=== PATIENT | female | born 1940 | race Caucasian/White ===

== ENCOUNTER 2017-08-25 09:31 | Day surgery (SDC) | payer MEDICARE ==
[2017-08-24 11:58] VITALS: BMI 27.4
[2017-08-25] MEDS ORDERED: Sodium Bicarbonate 2.5 MEQ/5 ML VIAL ONE (10:18)
[2017-08-25] MEDS ORDERED: Lidocaine 1% PF 5 ML VIAL ONE (10:18)
[2017-08-25 10:31] VITALS: BP 140/71; TEMP 98.3
--- NOTE | 2017-08-25 12:06 | ULT ---
SONOGRAPHIC GUIDED RIGHT THYROID MASS FNA: HISTORY: Goiter. Right thyroid mass. FINDINGS: After explaining the procedure and answering all questions, the anterior neck was prepped and draped in the usual sterile fashion. Sterile technique, buffered local anesthesia, sonographic guidance, an d an anterior approach were used to carefully advance the tip of a 25-gauge needle into the dominant heterogeneous mass at the mid portion of the right thyroid lobe. Position was confirmed with sonogra phy. Fine needle aspirate was obtained. A total of 4 passes were made and submitted to pathology fo r evaluation. The patient tolerated the procedure well and was dismissed in good condition. IMPRESSION: Technically successful right thyroid mass fine needle aspirate. Pathology is pending. POS: SHANON
--- NOTE | 2017-08-25 12:09 | ULT ---
THYROID ULTRASOUND: CLINICAL HISTORY: Multinodular goiter. FINDINGS: There is an enlarged and heterogeneous thyroid gland with several nodules scattered throughout each t hyroid lobe. The left thyroid lobe length is approximately 4 cm, and the right thyroid lobe length i s approximately 4.4 cm, as demonstrated. Within the mid right thyroid lobe, there is a dominant nodu le with interspersed flow and peripheral hyperemia, which measures approximately 1.3 cm. The thyroid isthmus measures 4 mm in thickness. IMPRESSION: Multiple bilateral thyroid nodules. A dominant discrete nodule is located within the mid right thyro id lobe, as discussed above. The patient has been previously scheduled for subsequent thyroid FNA. Reference procedural report fo r additional details in this regard. POS: SHANON
== END 2017-08-25 11:15 | disposition home or self-care (01) ==
LOC: ULT 09:31
PROVIDERS: ATTEND Otolaryngology Plastic Surgery within the Head & Neck
PROC: 07D13ZX Extraction of Right Neck Lymphatic, Percutaneous Approach, Diagnostic (ICD-10-PCS; principal; 2017-08-25)
PROC: BG44ZZZ Ultrasonography of Thyroid Gland (ICD-10-PCS; 2017-08-25)
DX: E04.1 Nontoxic single thyroid nodule (principal); E04.9 Nontoxic goiter, unspecified; I10 Essential (primary) hypertension; E78.00 Pure hypercholesterolemia, unspecified; I34.0 Nonrheumatic mitral (valve) insufficiency; Z79.899 Other long term (current) drug therapy; Z88.1 Allergy status to other antibiotic agents; Z88.5 Allergy status to narcotic agent; Z88.0 Allergy status to penicillin; Z88.7 Allergy status to serum and vaccine; Z88.8 Allergy status to other drugs, medicaments and biological substances; Z98.1 Arthrodesis status; Z90.49 Acquired absence of other specified parts of digestive tract; Z90.710 Acquired absence of both cervix and uterus; Z98.890 Other specified postprocedural states; Z87.01 Personal history of pneumonia (recurrent); Z85.828 Personal history of other malignant neoplasm of skin
CPT/HCPCS: 10022; 76536; 76942; 88173; J2001

== ENCOUNTER 2018-10-02 11:23 | Outpatient (CLI) | payer MEDICARE ==
--- NOTE | 2018-10-02 14:01 | ULT ---
THYROID SONOGRAM: History: Thyroid nodules. Follow up. Comparison: 08-25-17 FINDINGS: On today's exam, right thyroid lobe measures to 5.0 cm and has a heterogeneous echotexture. The heter ogeneous hypoechoic mass within the posterior aspect of the midportion now measures 1.3 cm transverse diameter, unchanged in appearance from the previous exam. The oval heterogeneous 1.3 cm nodule at t he inferior pole is also stable. Isthmus is 0.5 cm. The left thyroid lobe now measures 4.9 cm in length. The oval heterogeneous lesion at the inferior pole is not 2.4 cm oblique transverse diameter on the transverse imaging, unchanged in appearance from the prior study. It measures up to 3.4 cm length, also stable. No new masses are a pparent. IMPRESSION: Stable sonographic appearance of bilateral dominant thyroid lobe nodules. POS: SHANON
== END 2018-10-02 11:24 | disposition home or self-care (01) ==
LOC: BICULT 11:23
PROVIDERS: ATTEND Otolaryngology Plastic Surgery within the Head & Neck
DX: E04.1 Nontoxic single thyroid nodule (principal); E04.2 Nontoxic multinodular goiter
CPT/HCPCS: 76536

== ENCOUNTER 2019-01-10 01:40 | Outpatient (CLI) | payer MEDICARE ==
--- NOTE | 2019-01-10 16:52 | RAD ---
Chest 2 views HISTORY: Preop. FINDINGS: Cardiac silhouette and pulmonary vasculature are unremarkable. Mediastinum is midline. No c onfluent airspace consolidation, pneumothorax, or pleural fluid. IMPRESSION: No active cardiopulmonary abnormalities are demonstrated.
--- NOTE | 2019-01-12 09:17 | EKG ---
Test Reason : Blood Pressure : / mmHG Vent. Rate : 071 BPM Atrial Rate : 071 BPM P-R Int : 144 ms QRS Dur : 082 ms QT Int : 408 ms P-R-T Axes : 071 065 061 degrees QTc Int : 443 ms Normal sinus rhythm Normal ECG When compared with ECG of 16-MAY-2016 06:47, No significant change was found Confirmed by GEOVANNA GASCA, SRadha ([id number]) on 01/12/2019 9:16:50 AM Referred By: JANET Confirmed By:DR. Blair AUSTIN MD
== END 2019-01-10 01:41 | disposition home or self-care (01) ==
LOC: LABBT 01:40
PROVIDERS: ATTEND Orthopaedic Surgery
DX: Z01.818 Encounter for other preprocedural examination (principal); Z47.2 Encounter for removal of internal fixation device; M17.11 Unilateral primary osteoarthritis, right knee
CPT/HCPCS: 71046; 87081; 93005; 93010

== ENCOUNTER 2019-01-10 16:15 | Inpatient (IN) | payer MEDICARE ==
[2019-01-10 15:41] VITALS: BMI 26.5
[2019-01-10 16:37] LABS: #Eosinphils 0.1 thou/uL (0.0-0.7); #Lymphocytes 1.1 thou/uL (1.20-3.40); #Monocytes 0.7 thou/uL (0.11-0.59); #Neutrophils 4.6 thou/uL (1.40-6.50); %Basophils 0.4 % (0.0-1.0); %Eosinophils 1.8 % (0.0-10.0); %Lymphocytes 16.9 % (21.0-51.0); Hemoglobin 13.8 g/dL (12.0-16.0); Mean Corpuscular HGB CONC 34.7 g/dL (32.0-36.0); Mean Corpuscular Hemoglobin 32.9 pg (27.0-31.0); Mean Corpuscular Volume 94.7 fL (78.0-98.0); Mean Platelet Volume 7.2 fL (7.4-10.4); Platelet Count 260 thou/uL (130-400); White Blood Cell (WBC) Count 6.5 thou/uL (4.8-10.8)
[2019-01-10 16:39] LABS: Bilirubin Small (Negative); Blood, Urine Negative (Negative); Clarity CLOUDY (Clear); Glucose, Urine (Dipstick) Negative (Negative); Leukocyte Moderate (Negative); Nitrite Positive (Negative); Protein, Urine (Dipstick) Negative (Neg-Trace); Specific Gravity, Urine 1.024 (1.002-1.036); pH, Urine 5.5 (5.0-9.0)
[2019-01-10 16:40] LABS: Bacteria/HPF 4+ HPF (None Seen); Hyaline Casts/LPF 4-6 HYALINE CAST LPF (0-3 Hyaline); Squamous Epithelial 0-3 HPF (0-3)
[2019-01-10 16:43] LABS: INR-International Normal Ratio 0.9; Prothrombin Time 12.6 SEC (12.0-14.7)
[2019-01-10 17:03] LABS: Anion Gap 13 mmol/L (10-20); BUN (Urea Nitrogen) 17 mg/dL (9.8-20.1); Calc. Creatinine Clearance 41 mL/min (70-130); Calcium 9.8 mg/dL (7.8-10.44); Carbon Dioxide 31 mmol/L (23-31); Chloride 103 mmol/L (98-107); Estimated GFR-MDRD 43; Glucose 101 mg/dL (83-110); Potassium 3.7 mmol/L (3.5-5.1); Sodium 143 mmol/L (136-145)
[2019-01-15] MEDS ORDERED: Fentanyl 100 MCG/2 ML VIAL ONE ×2 (09:51→14:13)
[2019-01-15] MEDS ORDERED: Midazolam HCl 2 mg/2 ml Vial ONE (09:51)
[2019-01-15] MEDS ORDERED: Sodium Chloride 0.9% 10 ML ONE (09:53)
[2019-01-15] MEDS ORDERED: Sodium Chloride 0.9% 100 ML ONE (10:32)
[2019-01-15] MEDS ORDERED: Tranexamic Acid 1,000 MG/10 ML VIAL ONE (10:32)
[2019-01-15] MEDS ORDERED: Clindamycin/D5W 900 mg/50 ml Premix Bag ONE (11:36)
[2019-01-15] MEDS ORDERED: Bupivacaine/Epinephrine 0.25% 30 ML VIAL ONE (11:37)
[2019-01-15] MEDS ORDERED: Promethazine HCl 25 MG/ML VIAL IM PRN ×3 (11:53→13:48)
[2019-01-15] MEDS ORDERED: Ropivacaine HCl/PF 250 ML in Premix Bag 1 BAG NERVE BLCK SCH (11:53)
[2019-01-15] MEDS ORDERED: Zolpidem Tartrate 5 MG TAB PO PRN ×2 (11:53→13:48)
[2019-01-15] MEDS ORDERED: Ondansetron PF 4 MG/2 ML Vial IVP PRN ×2 (11:53→13:48)
[2019-01-15] MEDS ORDERED: traMADol HCl 50 MG TAB PO PRN ×3 (11:53→13:48)
[2019-01-15] MEDS ORDERED: Fentanyl 100 MCG/2 ML VIAL SLOW IVP PRN ×3 (11:56→13:48)
[2019-01-15] MEDS ORDERED: Acetaminophen 500 MG TAB PO PRN (11:59)
[2019-01-15] MEDS ORDERED: Ketorolac Tromethamine 30 MG/ML VIAL IVP SCH (12:00)
[2019-01-15] MEDS ORDERED: Promethazine HCl 25 MG/ML VIAL SLOW IVP PRN (13:47)
[2019-01-15] MEDS ORDERED: Ondansetron HCl/PF 4 MG/2 ML Vial IVP SCH (13:47)
[2019-01-15] MEDS ORDERED: diphenhydrAMINE 25 MG CAP PO PRN (13:48)
--- NOTE | 2019-01-15 13:57 | RAD ---
Right knee 2 views HISTORY: Right knee replacement. FINDINGS: Metallic components are well seated without apparent hardware loosening. Intracapsular and soft tissue gas are apparent. IMPRESSION: Right knee prosthesis is in good radiographic position.
[2019-01-15] MEDS ORDERED: Ketorolac Tromethamine 30 MG/ML VIAL ONE (14:13)
[2019-01-15] MEDS: Ketorolac Tromethamine 30 MG/ML VIAL IVP SCH ×2 (15:42→21:11)
[2019-01-15] MEDS: Sodium Chloride 0.9% 1,000 ML IV SCH (15:42)
[2019-01-15] MEDS: Clindamycin/D5W 900 MG in Premix Bag 1 BAG IVPB SCH ×2 (17:53→23:13)
[2019-01-15] MEDS: Senokot S 8.6-50 MG TAB PO SCH (20:38)
[2019-01-15] MEDS: Ferrous Gluconate 324 MG TAB PO SCH (20:38)
[2019-01-15] MEDS: Aspirin 81 mg Enteric Coated Tablet PO SCH (20:38)
[2019-01-15] MEDS ORDERED: Vancomycin HCl 1 GM in Premix Bag 1 BAG IVPB SCH (23:59)
[2019-01-16] MEDS: Sodium Chloride 0.9% 1,000 ML IV SCH ×3 (00:50→20:20)
[2019-01-16] MEDS: Acetaminophen 325 MG TAB PO PRN ×3 (03:28→20:28)
[2019-01-16] MEDS: Ketorolac Tromethamine 30 MG/ML VIAL IVP SCH ×3 (05:20→21:34)
[2019-01-16 05:34] LABS: Hemoglobin 11.3 g/dL (12.0-16.0); Mean Corpuscular HGB CONC 32.9 g/dL (32.0-36.0); Mean Corpuscular Hemoglobin 31.7 pg (27.0-31.0); Mean Corpuscular Volume 96.3 fL (78.0-98.0); Mean Platelet Volume 6.9 fL (7.4-10.4); Platelet Count 197 thou/uL (130-400); RBC Distribution Width 13.1 % (11.5-14.5); Red Blood Cell (RBC) Count 3.56 mill/uL (4.20-5.40); White Blood Cell (WBC) Count 5.9 thou/uL (4.8-10.8)
[2019-01-16] MEDS ORDERED: Sulfameth/Trimethoprim DS 800-160mg TAB PO SCH (09:00)
[2019-01-16] MEDS: Senokot S 8.6-50 MG TAB PO SCH ×2 (09:18→20:18)
[2019-01-16] MEDS: Aspirin 81 mg Enteric Coated Tablet PO SCH ×2 (09:18→20:17)
[2019-01-16] MEDS: Ferrous Gluconate 324 MG TAB PO SCH ×2 (09:18→20:18)
[2019-01-16] MEDS: Multivitamin W/ Minerals 1 TAB PO SCH (09:18)
--- NOTE | 2019-01-16 09:21 | OP ---
DATE OF PROCEDURE: 01/15/2019 PREOPERATIVE DIAGNOSIS: Right knee osteoarthritis, s/p patellar realignment PROCEDURE PERFORMED: Right total knee arthroplasty. CHARTING CLERK: Daren Arauz PA-C ANESTHESIOLOGIST: Dr. Iwona Puente. ANESTHESIA: The patient received a LMA with a single-shot sciatic adductor canal catheter. ESTIMATED BLOOD LOSS: 100 mL. TOURNIQUET TIME: 66 minutes at 250 mmHg. ANTIBIOTICS: Clindamycin 900, vancomycin 1 g TXA 1 g. The patient had triathlon size 4 femur, size 4 tibia, 9 CS poly, and A29 patella. COMPLICATIONS: None. HISTORY OF PRESENT ILLNESS: Ms. Guillen is a 78-year-old female, who presented with right knee pain. Pain has been present for several years. She had undergone conservative management and failed. She decided to undergo right total knee arthroplasty. I discussed risks and benefits of right total knee arthroplasty with possible hardware removal. Discussed risks and benefits to include pain, scar, bleeding, infection, damage to vital structures, decreased range of motion and strength, nonunion, malunion, fracture above or below the stem, loss of life or limb, and blood clot. She understood these risks and benefits and elected to proceed. DESCRIPTION OF PROCEDURE: After time-out was performed designating the patient' s right lower extremity as the operative site based on site, consents, and marking. After time-out procedure note, the patient had an anterior midline incision was made. Medial patellar arthrotomy exposed the patella, excised the fat pad, did a medial soft tissue release, post distal femur cut at 0 degrees, 4 degrees of slope and 10 and 8 respectively, removed the osteophytes. We then placed our 3 degrees external rotation guide mapped out to a size 4. We placed our 4 cutting block, cut anterior, posterior, and chamfer cuts, removed osteophytes, placed our pickle fork in position, released PCL. So as the distal tibia, cut the tibia in 4 degrees of posterior slope, 0 degrees of varus and valgus, and 3 and 5 respectively, removed the bone. We then placed our lamina catapult and arresting gear officer, removed osteophytes. Medial and lateral meniscus exposed and decompressed the PCL. Completion of this, we moved back to place our tibial tray, which we placed in-line with the tibia. We thought the posterior translation was good. translation. We liked the overall alignment and position. We then pinned into position, placed our poly. The patient's knee tracked well with the femur 9 CS. We then everted the patella, cut from 24 down to about 13, placed A29 symmetric patella. The patient overall had good alignment and tracking, liked the position. We then washed, drilled our lugs for our femur. We then looked at our tibia. We started tapping just gently to see if it would go down and went down without any issues, so either we passed through the small screw or missed it. We had no stoppage. Removed all the excess implants, washed. We then placed our poly, placed our femur, removed excess cement, cemented our patellar, removed excess cement and closed with a #2 Vicryl, 2 STRATAFIX, 0 STRATAFIX, 3-0 STRATAFIX, and glue. The patient will be admitted to [facility] per protocol postop. Job ID: [id number] MTDD
[2019-01-16] MEDS ORDERED: cloNIDine 0.1 MG TAB PO PRN (10:43)
--- NOTE | 2019-01-16 11:04 | PRG ---
DATE OF SERVICE: 01/16/2019 SUBJECTIVE: The patient was seen and examined for medical management. The patient denies any chest pain, shortness of breath, or palpitations. No lower extremity edema, dysuria, hematuria, or urgency reported. REVIEW OF SYSTEMS: All other review of systems was reviewed and were found negative. OBJECTIVE: VITAL SIGNS: Temperature 98.0, pulse rate of 75, respirations 12, blood pressure 132/62, and O2 saturation in normal range. GENERAL: A 78-year-old female, in no apparent distress. LUNGS: Clear to auscultation bilaterally. No wheezing, rales, or rhonchi. HEART: S1 and S2 present. Regular rate and rhythm. No rubs or gallops appreciated. ABDOMEN: Soft and nontender. Bowel sounds present. EXTREMITIES: No edema or calf tenderness. NEUROLOGIC: Grossly nonfocal. LABORATORY FINDINGS: WBC 6.5, hemoglobin 13.8, hematocrit 39.8, and platelet of 260. PT/INR in normal range. Chemistry showed sodium 143, potassium 3.7, chloride 103, bicarb 31, BUN 17, and creatinine 1.22. Urinalysis from two days ago was negative for wbc or bacteria. EKG by my review showed sinus rhythm. Right knee x-ray was in normal range. IMPRESSION: 1. Status post right total knee arthroplasty. 2. Recent urinary tract infection on Bactrim. 3. Chronic kidney disease stage 3. 4. Hypertension. 5. Hyperlipidemia. 6. Degenerative joint disease. 7. History of venous insufficiency, followed by Dr. Cain. PLAN: We will complete the Bactrim course. We will hold hydrochlorothiazide for now. We will resume clonidine to prevent clonidine rebound. We will resume carvedilol with holding parameters. We will hold hydrochlorothiazide for now. We will also hold amlodipine. We will repeat basic metabolic profile in a.m. CODE STATUS: Full code. The patient makes her own decision with the help of her family. Job ID: [id number]
[2019-01-16] MEDS: Carvedilol 6.25 MG TAB PO SCH (16:53)
[2019-01-16] MEDS ORDERED: Carvedilol 6.25 MG TAB PO SCH (17:00)
[2019-01-16] MEDS: cloNIDine 0.1 MG TAB PO SCH (20:18)
[2019-01-16] MEDS: Sulfameth/Trimethoprim DS 800-160mg TAB PO SCH (20:19)
[2019-01-17 05:46] LABS: Mean Corpuscular HGB CONC 32.7 g/dL (32.0-36.0); Mean Corpuscular Hemoglobin 31.6 pg (27.0-31.0); Mean Corpuscular Volume 96.6 fL (78.0-98.0); Mean Platelet Volume 7.4 fL (7.4-10.4); Platelet Count 196 thou/uL (130-400); RBC Distribution Width 13.3 % (11.5-14.5); Red Blood Cell (RBC) Count 3.48 mill/uL (4.20-5.40); White Blood Cell (WBC) Count 5.3 thou/uL (4.8-10.8)
[2019-01-17 05:47] LABS: Anion Gap 9 mmol/L (10-20); BUN (Urea Nitrogen) 12 mg/dL (9.8-20.1); Calc. Creatinine Clearance 55 mL/min (70-130); Calcium 8.5 mg/dL (7.8-10.44); Carbon Dioxide 25 mmol/L (23-31); Chloride 106 mmol/L (98-107); Estimated GFR-MDRD 61; Glucose 99 mg/dL (83-110); Potassium 4.2 mmol/L (3.5-5.1); Sodium 136 mmol/L (136-145)
[2019-01-17] MEDS: Ketorolac Tromethamine 30 MG/ML VIAL IVP SCH ×2 (05:48→14:33)
[2019-01-17] MEDS: Sodium Chloride 0.9% 1,000 ML IV SCH (06:35)
[2019-01-17] MEDS: Ferrous Gluconate 324 MG TAB PO SCH (08:54)
[2019-01-17] MEDS: Aspirin 81 mg Enteric Coated Tablet PO SCH (08:55)
[2019-01-17] MEDS: Sulfameth/Trimethoprim DS 800-160mg TAB PO SCH (08:55)
[2019-01-17] MEDS: cloNIDine 0.1 MG TAB PO SCH (08:55)
[2019-01-17] MEDS: Carvedilol 6.25 MG TAB PO SCH (08:55)
[2019-01-17] MEDS: Multivitamin W/ Minerals 1 TAB PO SCH (08:55)
[2019-01-17] MEDS: Senokot S 8.6-50 MG TAB PO SCH (08:56)
[2019-01-17 15:25] VITALS: BP 133/74; TEMP 98.3
--- NOTE | 2019-01-17 22:04 | PDOC.PN ---
- Subjective Encounter Start Date: 01/17/19 Encounter Start Time: 08:00 Patient seen and examined for med mngt. No new complaints. Pain controlled. No fever/N/V/dysuria. No overnight events - Objective MAR Reviewed: Yes Vital Signs & Weight: Vital Signs (12 hours) Temp Pulse Resp BP Pulse Ox 01/17/19 14:53 98.3 F 68 16 133/74 97 01/17/19 12:00 98 F 69 16 131/76 94 L Weight Admit Weight 150 lb Weight 150 lb I&O: 01/16/19 01/17/19 01/18/19 06:59 06:59 06:59 Intake Total 2900 1700 1800 Output Total 3100 Balance -200 1700 1800 Result Diagrams: 01/17/19 05:01 01/17/19 05:01 Phys Exam - Physical Examination Constitutional: NAD Respiratory: no wheezing, no rhonchi Cardiovascular: RRR, no rub Gastrointestinal: soft, non-tender, positive bowel sounds Musculoskeletal: no edema Neurological: non-focal Dx/Plan - Plan DVT proph w/SCDs IMPRESSION: 1. Status post right total knee arthroplasty. 2. Recent urinary tract infection on Bactrim. 3. Chronic kidney disease stage 3. 4. Hypertension. 5. Hyperlipidemia. 6. Degenerative joint disease. 7. History of venous insufficiency, followed by Dr. Cain. PLAN: Cont Bactrim for UTI Cont Clonidine Cont other meds as below Will follow Review of Systems - Review of Systems Respiratory: negative: Cough, Dry, Shortness of Breath, Hemoptysis, SOB with Excertion, Pleuritic Pain, Sputum, Wheezing Cardiovascular: negative: chest pain, palpitations, orthopnea, paroxysmal nocturnal dyspnea, edema, light headedness, other - Medications/Allergies Allergies/Adverse Reactions: Allergies Allergy/AdvReac Type Severity Reaction Status Date / Time morphine Allergy Severe RASH, HIVES Verified 01/10/19 15:42 Penicillins Allergy Intermediate RASH, HIVES Verified 01/10/19 15:42 Tetanus Vaccines and Toxoid Allergy Intermediate RASH, Verified 01/10/19 15:42 [Tetanus Vaccines & Toxoid] SWELLING ciprofloxacin [From Cipro] Allergy Nausea Verified 01/10/19 15:42 codeine Allergy Verified 01/10/19 15:42 [id number]-[id number] Reductase AdvReac Severe muscle Verified 01/10/19 15:42 Inhibitor pain, weakness NARCOTIC PAIN PILLS AdvReac NAUSEA/VOMI Uncoded 01/10/19 15:42 TING/DIARRH EA
== END 2019-01-17 15:35 | disposition home or self-care (01) | DRG 470 ==
LOC: SURG A 01-15 08:46
PROVIDERS: ADMIT Orthopaedic Surgery; ATTEND Orthopaedic Surgery
PROC: 0SRC0J9 Replacement of Right Knee Joint with Synthetic Substitute, Cemented, Open Approach (ICD-10-PCS; principal; 2019-01-15)
DX: M17.11 Unilateral primary osteoarthritis, right knee (principal); N39.0 Urinary tract infection, site not specified; I25.10 Atherosclerotic heart disease of native coronary artery without angina pectoris; E78.5 Hyperlipidemia, unspecified; G43.909 Migraine, unspecified, not intractable, without status migrainosus; I12.9 Hypertensive chronic kidney disease with stage 1 through stage 4 chronic kidney disease, or unspecified chronic kidney disease; N18.3 Chronic kidney disease, stage 3 (moderate); Z88.0 Allergy status to penicillin; Z88.7 Allergy status to serum and vaccine; Z88.5 Allergy status to narcotic agent; Z88.8 Allergy status to other drugs, medicaments and biological substances; Z90.49 Acquired absence of other specified parts of digestive tract; Z90.710 Acquired absence of both cervix and uterus
CPT/HCPCS: 36415; 80048; 81001; 85025; 85027; 85610; 86850; 86900; 86901; C1713; C1776; J0131; J1885; J2250; J2405; J2795; J3010; J3370; J3490; Q0163

== ENCOUNTER 2022-08-11 09:56 | Outpatient (CLI) | payer MEDICARE | END 2022-08-11 09:57 | disposition home or self-care (01) | LOC: BICULT 09:56 | PROVIDERS: ATTEND Otolaryngology Plastic Surgery within the Head & Neck | DX: E07.89 Other specified disorders of thyroid (principal); E04.2 Nontoxic multinodular goiter | CPT/HCPCS: 76536 ==

== ENCOUNTER 2024-01-19 05:38 | Day surgery (SDC) | payer MEDICARE ==
[2024-01-18 12:38] VITALS: BMI 26.5
[2024-01-19] MEDS ORDERED: Thrombin 5000 UNITS/5 ML VIAL ONE (06:14)
[2024-01-19] MEDS ORDERED: EPINEPHrine 1 MG/ML VIAL ONE (06:14)
[2024-01-19] MEDS ORDERED: Bupivacaine PF 0.5% 30 ML VIAL ONE (06:14)
[2024-01-19] MEDS ORDERED: Famotidine/PF 20 mg/2ml Vial ONE (06:28)
[2024-01-19] MEDS ORDERED: LevoFLOXacin D5W 500 mg (100 mL) BAG ONE (06:48)
[2024-01-19] MEDS ORDERED: Clindamycin/D5W 900 mg/50 ml Premix Bag ONE (06:48)
[2024-01-19] MEDS ORDERED: PROPOFOL 20 ML ONE (06:54)
[2024-01-19] MEDS ORDERED: fentaNYL 50 mcg/mL 1 mL Vial ONE (06:54)
[2024-01-19] MEDS ORDERED: Lidocaine 2% PF 5 ML VIAL ONE (06:59)
[2024-01-19] MEDS ORDERED: Rocuronium Bromide 10 MG/ML (10ML VIAL) ONE (06:59)
[2024-01-19] MEDS ORDERED: Ketorolac Tromethamine 30 MG (1 mL) VIAL ONE (07:26)
[2024-01-19] MEDS ORDERED: Ondansetron PF 4 MG/2 ML Vial ONE (07:26)
[2024-01-19] MEDS ORDERED: Dexamethasone 4 mg/ml Vial ONE ×3 (07:26→07:30)
[2024-01-19] MEDS ORDERED: diphenhydrAMINE 50 MG/ML VIAL ONE (07:26)
[2024-01-19] MEDS ORDERED: Dexmedetomidine 200 MCG/2 ML VIAL ONE (07:28)
[2024-01-19] MEDS ORDERED: SUGAMMADEX SODIUM 200 MG/2 ML VIAL ONE (07:29)
[2024-01-19] MEDS ORDERED: PHENYLEPHRINE-NS 100 MCG/ML 10 ML SYRINGE ONE (07:40)
[2024-01-19] MEDS ORDERED: Acetaminophen 325 MG TAB ONE (09:37)
== END 2024-01-19 10:45 | disposition home or self-care (01) ==
LOC: SDC 05:38
PROVIDERS: ATTEND Neurological Surgery
PROC: 01NB0ZZ Release Lumbar Nerve, Open Approach (ICD-10-PCS; principal; 2024-01-19)
DX: M51.16 Intervertebral disc disorders with radiculopathy, lumbar region (principal); I10 Essential (primary) hypertension; I25.10 Atherosclerotic heart disease of native coronary artery without angina pectoris; E07.9 Disorder of thyroid, unspecified; Z90.710 Acquired absence of both cervix and uterus; Z96.659 Presence of unspecified artificial knee joint; Z90.89 Acquired absence of other organs; Z79.899 Other long term (current) drug therapy; Z88.5 Allergy status to narcotic agent; Z88.0 Allergy status to penicillin; Z88.2 Allergy status to sulfonamides; Z88.7 Allergy status to serum and vaccine; Z98.890 Other specified postprocedural states
CPT/HCPCS: 63030; C1713; J0171; J0665; J1100; J1200; J1885; J1956; J2001; J2405; J2704; J3010; J3490; S0028; 93005; 93010